=== PATIENT | female | born 1970 | race Caucasian/White ===

== ENCOUNTER 2019-02-25 08:42 | Inpatient (IN) | payer MEDICAID ==
[~2019-02-25] VITALS: Ht 162.6 cm; Wt 65.8 kg
--- NOTE | 2019-02-25 09:00 | NUR ---
LATE NOTE ENTRY DUE TO PT CARE. Pt presents to ED by EMS after bystanders witnessed pt have a focal seizure. Bystanders told EMS pt has "spaced out" and associated tremors. Pt states recent diagnosis of seizures within the last year, with this incident being her second seizure. Pt states, "I havn't taken Keppra in months". Pt denies head trauma, oral trauma, or loss of bowel or bladder control. Pt resting on gurney connected to NIBP cuff, continous pulse ox monitor, and teletypesetter monitor. Bedrails up x [address] Call light within reach. PIV and labs obtained. NADN. Pt is AOX4 GCS of 15. No other needs requested. Pt provifed warm blankets for comfort measures.
[2019-02-25] MEDS ORDERED: SODIUM CHLORIDE FLUSH 10ML SYR IVF ONE (09:30)
[2019-02-25] MEDS ORDERED: LORazepam 2 MG/ML, 1ML IVPush ONE (09:30)
[2019-02-25] MEDS ORDERED: LORazepam 2 MG/ML, 1ML ONE (09:42)
[2019-02-25 09:46] LABS: BASOPHILS # (AUTO) 0.08 x10^3/uL (0-0.1); BASOPHILS % (AUTO) 1 % (0-1); EOSINOPHILS # (AUTO) 0.25 x10^3/uL (0-0.4); EOSINOPHILS % (AUTO) 2 % (1-7); LYMPHOCYTES # (AUTO) 2.75 x10^3/uL (1-3.4); LYMPHOCYTES % (AUTO) 16 % (22-44); MD NO; MEAN CORPUSCULAR HEMOGLOBIN 32.8 pg (27.0-34.8); MEAN CORPUSCULAR HGB CONC 33.1 g/dL (32.4-35.8); MONOCYTES # (AUTO) 0.83 x10^3/uL (0.2-0.8); MONOCYTES % (AUTO) 5 % (2-9); NEUTROPHILS % (AUTO) 77 % (42-75); PLATELET COUNT 339 x10^3/uL (130-400); RED BLOOD COUNT 4.56 x10^6/uL (3.82-5.3); RED CELL DISTRIBUTION WIDTH 13.6 % (9.6-15.2)
[2019-02-25 09:51] LABS: ALANINE AMINOTRANSFERASE 19 U/L (12-78); ALBUMIN 4.3 g/dL (3.4-5.0); ANION GAP 9 mmol/L (5-15); CALCIUM 8.8 mg/dL (8.5-10.1); CHLORIDE 104 mmol/L (98-107); CREATININE 0.76 mg/dL (0.55-1.02); SALICYLATE LEVEL 6.1 mg/dL (2.8-20.0)
[2019-02-25 09:53] LABS: ALKALINE PHOSPHATASE 59 U/L (45-117); BILIRUBIN,TOTAL 0.6 mg/dL (0.2-1.0)
[2019-02-25 10:00] LABS: MICROSCOPIC NOT IND
[2019-02-25 10:11] LABS: CULTURE INDICATED? NO
--- NOTE | 2019-02-25 10:13 | NUR ---
LATE NOTE ENTRY DUE TO PT CARE. Pt ambulates with steady gait and balance with NADN and no defecits observed. Pt ambulates to bathroom with UA cup provided.
--- NOTE | 2019-02-25 10:43 | NUR ---
REPORT FROM MARNI VAZQUEZ ASSUMING CARE OF PT AT THIS TIME.
[2019-02-25 10:57] LABS: AMPHETAMINE SCREEN, URINE Negative (Negative); BARBITURATE SCREEN, URINE Negative (Negative); BENZODIAZEPINE SCREEN, URINE Negative (Negative); CANNABINOID SCREEN, URINE Positive (Negative); COCAINE SCREEN, URINE Negative (Negative); METHADONE SCREEN, URINE Negative (Negative); OPIATE SCREEN, URINE Negative (Negative)
[2019-02-25] MEDS ORDERED: SODIUM CHLORIDE FLUSH 10ML SYR IVF PRN (11:00)
--- NOTE | 2019-02-25 11:10 | NUR ---
HOSPTIALIST AT BEDSIDE TO ADMIT PT.
--- NOTE | 2019-02-25 11:26 | NUR ---
REPORT GIVEN TO FLOOR RN ALL QUESTIONS ADDRESSED. PT READY FOR TRANSPORT
[2019-02-25] MEDS ORDERED: ONDANSETRON ODT 4 MG PO PRN (11:30)
[2019-02-25] MEDS ORDERED: ONDANSETRON 2MG/ML, 2ML IVPush PRN (11:30)
[2019-02-25] MEDS ORDERED: LORazepam 1MG TABLET PO PRN ×4 (11:30)
[2019-02-25 11:55] VITALS: BP 148/89
[2019-02-25] MEDS ORDERED: ALBUTEROL SULFATE 2.5 MG/3 ML NPPB PRN (12:00)
[2019-02-25] MEDS: LEVETIRACETAM 500 MG TABLET PO SCH ×2 (12:30→20:22)
[2019-02-25] MEDS: ENOXAPARIN 40 MG/0.4 ML SQ SCH (12:31)
[2019-02-25] MEDS: NICOTINE 14MG/24 HR PATCH.TD24 TD SCH (12:31)
[2019-02-25 14:05] VITALS: BP 120/81
[2019-02-25] MEDS ORDERED: FLU VACC QS2019-20 36MOS UP/PF 0.5 ML IM-VACC ONE (15:30)
[2019-02-25] MEDS ORDERED: GADOTERATE 7.5 MMOL/15 ML SYR ONE (15:35)
[2019-02-25 18:40] VITALS: BP 134/95
[2019-02-26 01:54] VITALS: BP 120/81
[2019-02-26] MEDS: ACETAMINOPHEN 325 MG TABLET PO PRN ×2 (05:21→10:29)
[2019-02-26 06:08] LABS: BASOPHILS # (AUTO) 0.04 x10^3/uL (0-0.1); BASOPHILS % (AUTO) 0 % (0-1); EOSINOPHILS # (AUTO) 0.23 x10^3/uL (0-0.4); EOSINOPHILS % (AUTO) 2 % (1-7); LYMPHOCYTES # (AUTO) 2.32 x10^3/uL (1-3.4); LYMPHOCYTES % (AUTO) 23 % (22-44); MD NO; MEAN CORPUSCULAR HEMOGLOBIN 32.6 pg (27.0-34.8); MEAN CORPUSCULAR HGB CONC 32.8 g/dL (32.4-35.8); MEAN CORPUSCULAR VOLUME 99.5 fL (80-100); MEAN PLATELET VOLUME 8.9 fL (7.4-10.4); MONOCYTES # (AUTO) 0.66 x10^3/uL (0.2-0.8); MONOCYTES % (AUTO) 6 % (2-9); NEUTROPHILS # (AUTO) 7.02 x10^3/uL (1.8-6.8); NEUTROPHILS % (AUTO) 68 % (42-75); PLATELET COUNT 263 x10^3/uL (130-400); RED BLOOD COUNT 4.38 x10^6/uL (3.82-5.3); RED CELL DISTRIBUTION WIDTH 13.6 % (9.6-15.2)
[2019-02-26 06:20] LABS: ANION GAP 4 mmol/L (5-15); CALCIUM 8.8 mg/dL (8.5-10.1); CHLORIDE 109 mmol/L (98-107); CREATININE 0.74 mg/dL (0.55-1.02)
[2019-02-26 07:46] VITALS: BP 115/78
[2019-02-26] MEDS: MULTIVITAMINS/MINERALS TABLET PO SCH (10:29)
[2019-02-26] MEDS: LEVETIRACETAM 500 MG TABLET PO SCH ×2 (10:29→20:28)
[2019-02-26] MEDS: NICOTINE 14MG/24 HR PATCH.TD24 TD SCH (13:22)
[2019-02-26] MEDS: ENOXAPARIN 40 MG/0.4 ML SQ SCH (13:22)
[2019-02-26 14:17] VITALS: BP 119/79
[2019-02-26 19:19] VITALS: BP 128/85
[2019-02-27 01:07] VITALS: BP 122/62
[2019-02-27 06:27] VITALS: BP 102/66
[2019-02-27] MEDS: ACETAMINOPHEN 325 MG TABLET PO PRN ×2 (07:54→11:55)
[2019-02-27] MEDS: MULTIVITAMINS/MINERALS TABLET PO SCH (07:54)
[2019-02-27] MEDS: LEVETIRACETAM 500 MG TABLET PO SCH (07:55)
[2019-02-27] MEDS ORDERED: LEVE500T53 PO (11:17)
[2019-02-27] MEDS ORDERED: MULT-484 PO (11:17)
[2019-02-27 11:58] VITALS: BP 129/82
[2019-02-27 12:02] VITALS: BP 129/82
== END 2019-02-27 12:26 | disposition home or self-care (01) | DRG 53 ==
LOC: ED 09:19 → EDIP 10:46 → 4EST 11:51 → DCLOUNGE 02-27 12:17
PROVIDERS: ADMIT Family Medicine; ATTEND Internal Medicine
DX: G40.909 Epilepsy, unspecified, not intractable, without status epilepticus (principal); D72.829 Elevated white blood cell count, unspecified; F10.239 Alcohol dependence with withdrawal, unspecified; I10 Essential (primary) hypertension; F12.20 Cannabis dependence, uncomplicated; G43.909 Migraine, unspecified, not intractable, without status migrainosus; Z91.19 Patient's noncompliance with other medical treatment and regimen; Z72.0 Tobacco use; Z63.8 Other specified problems related to primary support group; Z59.0 Homelessness
CPT/HCPCS: 36415; 70450; 70553; 71045; 80048; 80053; 80307; 81003; 85025; 90686; 93005; G0378; J1650; J2405; Q0162; A9575; J2060